=== PATIENT | male | born 1990 | race Asian ===

== ENCOUNTER → 2019-12-18 10:37 | Outpatient (CLI) | payer SELFPAY | DX: I49.9 Cardiac arrhythmia, unspecified (principal) | CPT/HCPCS: 93005 ==

== ENCOUNTER → 2020-02-27 16:18 | Outpatient (CLI) | payer SELFPAY ==
--- NOTE | 2020-02-27 16:27 | DI.RAD.S_ITS ---
PROCEDURE: XR LUMBAR SPINE 2-3V INDICATIONS: LUMBAGO W/BI SCIATICA RSL DTR BI TECHNIQUE: 2 views of the lumbar spine were acquired. COMPARISON: None. FINDINGS: Bones: No fracture or focal osseous destruction. Narrowing of the L4-L5 and L5-S1 disc space. Straightening of the normal lordotic curvature. Multilevel degenerative endplate sclerosis and spurring. Diffuse facet arthropathy. Soft tissues: Overlying bowel gas pattern is normal. No suspicious soft tissue calcifications. IMPRESSION: Mild lower lumbar spondylosis and facet disease Dictated by: Dontae Hidalgo M.D. on 02/27/2020 at 17:07 Approved by: Dontae Hidalgo M.D. on 02/27/2020 at 17:08
== END ==
PROVIDERS: Referring Provider Chiropractor; Visit Provider Chiropractor
DX: M54.42 Lumbago with sciatica, left side (principal); M54.41 Lumbago with sciatica, right side; M47.816 Spondylosis without myelopathy or radiculopathy, lumbar region
CPT/HCPCS: 72100